=== PATIENT | female | born 1985 ===

== ENCOUNTER 2017-04-15 00:39 | Emergency (ER) | payer MEDICAID, OTHER ==
[2017-04-15 00:39] VITALS: BMI 21.4
[2017-04-15 01:00] VITALS: BP 108/66; PULSE 83; RESP 18; TEMP 98.3; O2SAT 98
--- NOTE | 2017-04-15 01:14 | C.PDOC ---
History Of Present Illness 32 y/o female presents to the ED claiming "ceiling material fell on top of her head" today. Patient presents to the ER intoxicated. Has a hx of multiple presentation for intoxication. Denies dizziness, headache, LOC, or any other complaints. - HPI Time Seen by Provider: 04/15/17 01:04 Chief Complaint (Nursing): Trauma History Per: Patient History/Exam Limitations: no limitations Onset/Duration Of Symptoms: Hrs Severity: Mild Additional History Per: Patient Past Medical History Reviewed: Historical Data, Nursing Documentation, Vital Signs Vital Signs: Last Vital Signs Temp 98.3 F 04/15/17 00:56 Pulse 83 04/15/17 00:56 Resp 18 04/15/17 00:56 BP 108/66 04/15/17 00:56 Pulse Ox 98 04/15/17 01:14 - Medical History PMH: Anemia, Anxiety, Depression, Seizures Denies: Diabetes, Hepatitis, HIV, HTN, Sexually Transmitted Disease - [facility] MONITORING NOS (06/16/13) Family History: States: Unknown Family Hx - Social History Hx Tobacco Use: No Hx Alcohol Use: Yes Hx Substance Use: No - Immunization History Hx Tetanus Toxoid Vaccination: No Hx Influenza Vaccination: No Hx Pneumococcal Vaccination: No Review Of Systems Except As Marked, All Systems Reviewed And Found Negative. Constitutional: Positive for: Other (intoxicated) Neurological: Negative for: Headache, Dizziness, Other (LOC) Physical Exam - Physical Exam Appears: Non-toxic, No Acute Distress, Other (Intoxicated, argumentative, bizzare. ) Skin: Warm, Dry, Other (No abrasions to the scalp, upper chest, arms, or shoulders.) Head: Atraumatic Neurological/Psych: Oriented x3 ED Course And Treatment O2 Sat by Pulse Oximetry: 98 Pulse Ox Interpretation: Normal Medical Decision Making Medical Decision Making: normal exam, seems intox on PCP as prior no injuries suspect malingering. emotionally lible, escorted from ED by Security. Disposition Doctor Will See Patient In The: Office Counseled Patient/Family Regarding: Studies Performed, Diagnosis - Disposition Referrals: [facility] [Outside] [facility] [Outside] Bonita Otero MD [Staff Provider] - Disposition: HOME/ ROUTINE Disposition Time: 01:13 Condition: GOOD Additional Instructions: continue ice packs and motrin as needed Instructions: Abrasion (ED) Forms: [facility] ([place]) - Clinical Impression Clinical Impression: Substance abuse, Superficial abrasion - Scribe Statement The provider has reviewed the documentation as recorded by the Scribe Clyde sutton All medical record entries made by the Scribe were at my direction and personally dictated by me. I have reviewed the chart and agree that the record accurately reflects my personal performance of the history, physical exam, medical decision making, and the department course for this patient. I have also personally directed, reviewed, and agree with the discharge instructions and disposition.
== END 2017-04-15 01:37 | disposition home or self-care (01) ==
LOC: C.ER 00:39
DX: F19.10 Other psychoactive substance abuse, uncomplicated (principal); T14.8XXA Other injury of unspecified body region, initial encounter; W22.8XXA Striking against or struck by other objects, initial encounter